=== PATIENT | male | born 1990 | race Caucasian/White ===

== ENCOUNTER → 2019-07-04 15:30 | Outpatient (CLI) | payer BC, SELFPAY ==
--- NOTE | 2019-07-04 15:02 | CT_ITS ---
STUDY: CT ABDOMEN AND PELVIS WITHOUT CONTRAST REASON FOR EXAM: Male, 28 years old. GROSS HEMATURIA, LT FLANK PAIN, NO PREV SURG OR HX [place] RADIATION DOSAGE (If Supplied By Facility): CTDIvol = ( 6.08 ) mGy, DLP = ( 303.83 ) mGycm TECHNIQUE: Transaxial images were obtained from the dome of the diaphragm to the symphysis pubis without oral contrast, and without intravenous contrast. Sagittal and coronal images were reconstructed. Individualized dose optimization techniques were used for this CT. COMPARISON: None. FINDINGS: The visualized lung bases are unremarkable. The visualized portions of the heart are within normal limits. Normal liver. Normal gallbladder and extrahepatic biliary system. Normal spleen. Normal pancreas. Normal bilateral adrenal glands. Nonobstructive punctate calculi in the right kidney. 1 cm cyst in the posterior aspect of the right kidney. 2 mm calculus in the upper pole calyx of the left kidney. Punctate calcification in the mid lower pole of the left kidney. 6 mm calculus in the lower pole calyx of the left kidney. Mild degree of a left hydronephrosis and left hydroureter due to a 5.6 mm calculus at the left ureterovesical junction. There is a 3 mm calculus just proximal to the left UV junction. Normal visualized stomach. Normal small intestine. There are scattered colonic diverticula consistent with diverticulosis. The appendix is visualized and appears normal. Normal abdominal aorta. Normal inferior vena cava. Normal retroperitoneum. Normal urinary bladder. Normal abdominal wall. Normal osseous structures. CT/Abdomen/Pelvis without Cont IMPRESSION: Bilateral nonobstructive intrarenal calculi. Mild degree of left hydronephrosis and hydroureter due to a 5.6 mm calculus at the left ureterovesical junction. 3 mm calculus is also seen just proximal to the left UV junction. Electronically Signed: Stepan Ruiz, at 15:26 EDT , Service support ,
== END ==
PROVIDERS: PCP Family Medicine
DX: R31.0 Gross hematuria (principal); R10.9 Unspecified abdominal pain
CPT/HCPCS: 74176

== ENCOUNTER 2019-07-06 08:37 | Day surgery (SDC) | payer BC, SELFPAY ==
[2019-07-06 09:30] VITALS: BP 124/71; PULSE 79; RESP 15; TEMP 36.8; O2SAT 100; BMI 19.3
[2019-07-06] MEDS: Lactated Ringers 1,000 ML 100 ML IV ×2 (09:52→11:50)
[2019-07-06] MEDS: Cefazolin 2 GM in 0.9% Normal Saline 100 ML IV (10:33)
--- NOTE | 2019-07-06 10:33 | HP.PCM_ITS ---
Problem List (1) Left ureteral calculus Status: Acute History of Present Illness Date of Admission: 07/06/19 Chief Complaint: Left obstructing ureteral calculus The patient is a 28 year old male who is been having obstructive urinary symptoms and frequency urgency blood in the urine for over a month saw us in the office for evaluation CAT scan was done demonstrated a stone in the distal left ureter causing his symptoms and problems he is failed to pass the stone spontaneously so today we can proceed with left ureteroscopy laser lithotripsy and stent placement Past Medical History Allergies No Known Allergies Allergy (Verified 07/06/19 09:29) Home Medications: Ambulatory Orders Medication Instructions Recorded NK 07/05/19 Surgical History: no surgical history Smoking Status: Never smoker Review of Systems Constitutional: Denies: Chills, Fever, Weight Change HEENT: Denies: Head Aches, Sinus Congestion, Sinus Drainage Cardiovascular: Denies: Chest Pain, Palpitations Respiratory: Denies: Cough, Shortness of breath at rest, Sputum production Gastrointestinal: Denies: Abdominal Pain, Nausea, Vomiting Genitourinary: Denies: Dysuria Musculoskeletal: Denies: Joint Pain, Joint Tenderness Skin: Denies: Rash, Wounds Neurological: Denies: Numbness, Tingling, Focal weakness Psychiatric: Denies: Anxiety, Depression, Homicidal Ideations, Suicidal Ideations Hematologic/ Lymphatic: Denies: Easy Bruising, Easy Bleeding VTE Information - Inpt Only VTE Present on Admission: No VTE Mechan Device Prophylaxis: SCD's Patient Problems: Active and Suspected Problems Left ureteral calculus (Acute) - Physical Exam Vitals/I&O's: Vital Signs Temp Pulse Resp BP Pulse Ox 98.3 F 79 15 124/71 H 100 07/06/19 09:30 07/06/19 09:30 07/06/19 09:30 07/06/19 09:30 07/06/19 09:30 Oxygen Delivery Method Room Air Weight: 64.5 kg Body Mass Index (BMI) 19.3 General: Alert, Oriented x3, Cooperative HEENT: Atraumatic, PERRLA, EOMI, Normocephalic Neck: Supple, No JVD, Negative Carotid Bruits Lungs: Clear to auscultation, Normal air movement Cardiovascular: Regular rate, No murmurs Abdomen: Bowel Sounds Present, Soft, Non Tender Extremities: No edema, Capillary Refill Less than 3 Seconds Skin: No rashes, No breakdown Musculoskeletal: No Tenderness to Palpation of Joints or Extremities Neurological: Cranial nerves II-XII grossly intact Psych/Mental Status: Normal Affect, Appropriate Microbiology Past 72 Hours 07/05/19 12:02 Mucosa - Nasopharyngeal Coronavirus COVID-19 PCR - Final Current Medications Lactated Ringer's () 1,000 mls @ 100 mls/hr IV .Q10H BONITA Last Admin: 07/06/19 09:52 Dose: 100 mls/hr Documented by: Assessment/Plan All Active Problems Left ureteral calculus (Acute) 28-year-old male with obstructing stone in the distal left ureter plan to proceed with left ureteroscopy with balloon dilation and stent placement the left side. Essential Procedure Criteria Procedure Essential: Yes Criteria Note: On 05/10/2019 the [facility] ([facility]) Public Order signed by [facility] Director Yen Garcia M.D., regarding the Management of Non- Essential Surgeries and Procedures for the purpose of preserving Personal Protective Equipment (PPE) and critical hospital capacity and resources within [place] went into effect as of 05/11/2019 at 5:00PM. According to the [facility] Public Order: This action will remain in full force and effect until the State of Emergency declared by the Governor no longer exists or the Director of the [facility] rescinds or modifies this Order.. This [facility] order stated all non-essential or elective surgeries and procedures that utilize PPE should be delayed unless there is undue risk to the current or future health of a patient. After reviewing the aforementioned [facility] Public Order and the patients clinical case, I have determined that the scheduled procedure meets the criteria to go forward. Risk to Patient if Procedure Delayed: Risk of rapidly worsening to severe symptoms if delayed
--- NOTE | 2019-07-06 10:37 | PCM.DC.URO ---
Discharge Diet: No Restrictions Discharge Activity: Return to Normal Activity, May Not Drive - for 2 days. Additional Activity Instructions:: Please be aware that pain medications may cause nausea. You should typically eat light foods as you take your pain medication. Pain medication may cause constipation, if this is a problem for you, please discuss with your doctor. Suture Line Care: Avoid Pulling/Pushing, Avoid Pinching/Bending Allergies/Adverse Reactions: Allergies No Known Allergies Allergy (Verified 07/06/19 09:29) Medications to take at Discharge Ciprofloxacin [Cipro] 500 mg PO BID #6 tab 07/06/19 Hydrocodone Bitart/Apap 5-325 [[place] 5MG-325MG] 1 tablet PO Q4H PRN PRN 5 Days #14 tablet 07/06/19 Phenazopyridine [Pyridium] 100 mg PO TID PRN PRN 5 Days #14 tab 07/06/19 The following prescriptions were given: Ciprofloxacin [Cipro] 500 mg PO BID #6 tab Transmission Status: Pending to [facility] Hydrocodone Bitart/Apap 5-325 [[place] 5MG-325MG] 1 tablet PO Q4H PRN PRN 5 Days #14 tablet PRN Reason: Pain Transmission Status: Sent to [facility] Phenazopyridine [Pyridium] 100 mg PO TID PRN PRN 5 Days #14 tab PRN Reason: burning with urination. Transmission Status: Pending to [facility] Primary Care Physician: Dillan Staples MD [Primary Care Provider] - Test Results: Test results from this visit will be discussed in further detail at your follow-up appointment, if applicable. Please Follow Up With: Garrett Caruso MD When: please call to make an appointment.
--- NOTE | 2019-07-06 10:45 | CALC_PTH ---
PATIENT: LISETTE DAVALOS LOC: [facility] U#:[id number] AGE/SX: 28/M ROOM: RE07/06/[address]: Dr. Garrett Caruso MD : 1990 BED: DIS: 07/06/2019 SPEC #: [id number] RECD: 07/06/19 12:10 STATUS: CLEMENTE RERupa #: [id number] HAILEE: 07/06/19 10:[address]: Garrett Caruso DEPT: SURGICAL PATHOLOGY RECD BY: Glenny Yen ENTERED: 07/07/19 08:41 SP TYPE: Calculi OTHR DR: Dr. Dillan Staples MD Tissues: CALCULI Procedures: Surgery Specimen Level I HEADER OPERATION: Ureteroscopy, dilation, basket, laser PRE-OP DIAGNOSIS: Distal left ureteral calculi TISSUE SUBMITTED: Left ureteral calculi GROSS DIAGNOSIS Fragments of stone, clinically ureteral calculi, saved for stone analysis if requested. SJ:bo 07/07/19 COMMENT If chemical analysis is requested on this specimen, please notify the laboratory. GROSS DESCRIPTION Received in fixative is one container labeled with the patient's name and designated left ureteral calculi. The specimen consists of five fragments of reyna-brown stones measuring 0.1 to 0.2 cm in greatest dimension and measuring in aggregate 0.4 x 0.4 x 0.3 cm. The entire specimen is saved for stone analysis, if requested. / PROSPER:bo 07/07/19 CPT: 88273
--- NOTE | 2019-07-06 11:12 | PCM.OPRPT ---
Problem List (1) Left ureteral calculus Status: Acute Report of Operation Date of Procedure: 07/06/19 Pre-Operative Diagnosis: Left ureteral calculi obstructing Post-Operative Diagnosis: Same Surgery/Procedure Performed:: Cystoscopy, left retrograde pyelogram, interpretation fluoroscopic images, balloon dilation of the left ureter, left ureteroscopy laser lithotripsy of stone. Basket of fragments, left stent placement Description of Surgical Findings:: 28-year-old male is been having symptoms from irritative urinary symptoms frequency urgency pain or discomfort pain on the side blood in the urine CAT scan was done to demonstrate a stone in the distal ureter very large and today we can proceed with ureteroscopy and laser the stone and stent placement. Patient was taken back to the operating room after smooth induction of general anesthesia he was placed in dorsolithotomy position the penis and testicles were prepped and draped in usual sterile fashion went into the urethra with a 21 [place] rigid cystourethroscope was able to get to the urethra quite easily the entire length urethra is normal the sphincter was normal prostate was normal inside the bladder he had a fairly edematous swollen left ureteral orifice was able to cannulate the left ureteral orifice advanced a wire past the stone and then advanced a balloon dilator up to the stone and balloon dilated the distal left ureter then I left the wire in place and next to the wire went in with a SlimLine rigid ureteroscope was able to get into the bladder easily and then identify the ureteral orifice and the next to the wire went into the ureter we then found a large stone about 7 mm in the distal ureter used a 200 ?m laser fiber laser the stone little tiny pieces. We then used a nitinol tipless basket and basket the major fragments out of the distal ureter some tiny fragments were still left in the ureter. I then performed a retrograde pyelogram he could see contrast going of the kidney advance a wire through the ureteroscope up to the left kidney backed out the ureteroscope and then over the wire advanced a stent a 6 [place] by 24 cm stent once a stent was in good position and coiled in the kidney bladder good position we left the string on the stent for easy extraction but cut it short to prevent X prevent accidental early extraction. The bladder was drained the patient anesthetic was reversed taken back to PACU in good condition see him next week for cystoscopy and stent removal. Type of Anesthesia:: General Drains: stent left. - Admit VTE Documentation VTE Present on Admission: No VTE Mechan Device Prophylaxis: SCD's
[2019-07-06 11:33] VITALS: BP 102/68; BP 124/71; PULSE 77; RESP 12; TEMP 36.5; O2SAT 98
[2019-07-06] MEDS: Ketorolac 30 MG/ML Syringe IV (11:41)
[2019-07-06 11:56] VITALS: BP 115/79; BP 124/71; PULSE 77; RESP 16; TEMP 36.3; O2SAT 100
[2019-07-06 12:40] VITALS: BP 121/65; BP 124/71; PULSE 66; RESP 16; TEMP 36.2; O2SAT 99
== END 2019-07-06 12:48 | disposition home or self-care (01) ==
LOC: SDC 08:41 → AC 08:41
PROVIDERS: PCP Family Medicine; Referring Provider Urology; Visit Provider Urology
PROC: 0TJ98ZZ Inspection of Ureter, Via Natural or Artificial Opening Endoscopic (ICD-10-PCS; CPT 52352; principal; 2019-07-06 10:35)
DX: N20.1 Calculus of ureter (principal); Z11.59 Encounter for screening for other viral diseases
CPT/HCPCS: 00918; 52356; 76000; 87635; 88300; G2023; J7120; C1769; C2617; J2405; U0002

== ENCOUNTER 2019-11-14 13:03 | Emergency (ER) | payer OTHER, SELFPAY ==
[2019-11-14 13:03] VITALS: BP 131/90; PULSE 91; RESP 16; TEMP 36.1; O2SAT 97; BMI 18.3
--- NOTE | 2019-11-14 13:29 | ED.VIS.GEN ---
History of Present Illness Chief Complaint: Back Informant: Patient Onset: Yesterday Current Severity: Mild Maximum Severity: Moderate Narrative: Patient present secondary to back pain. Yesterday morning he was at work and helping to lift some products. He states he felt a twinge in his low back shortly after lifting that progressed throughout the day. He ended up leaving work early. He did take a dose of hydrocodone and tizanidine last evening at home. He states he took more hydrocodone this morning. He has not had relief in his pain so he called off work today and came to the emergency room. There was no direct injury to his back. Pain does not radiate down his legs. He has had no problems with bowel or bladder control. He denies problems with his back previously. - Past Medical History (1) Left ureteral calculus Status: Resolved Past Medical History - Allergies and Home Meds Allergies/Adverse Reactions: Allergies No Known Allergies Allergy (Verified 07/06/19 09:29) Primary Care Physician: Dillan Staples MD [Primary Care Provider] - Surgical History: no surgical history Lives: Spouse/ Significant Other Smoking Status: Never smoker Review of Systems General: Denies: Chills, Fever Eyes: Denies: Visual changes - bilaterally ENT: Denies: Bilateral ear pain Cardiovascular: Denies: Chest pain Respiratory: Denies: Dyspnea, Cough Gastrointestinal: Denies: Abdominal pain, Nausea, Vomiting, Diarrhea Musculoskeletal: Reports: Back pain Skin: Denies: Rash Neurological: Denies: Headache, Weakness, Parasthesia Hematologic: Denies: Easy bruising, Easy bleeding Allergy: Denies: Uticaria Physical Exam Vital Signs/Narrative: Vital Signs Temp Pulse Resp BP Pulse Ox 11/14/19 13:03 97 F L 91 16 131/90 H 97 Inital Vital Signs reviewed: Yes General: Well nourished, Well developed Head: Normocephalic ENT: Moist mucous membranes Neck: Supple Cardiovascular: Regular rate, Regular rhythm Respiratory: No distress, CTA bilaterally Abdomen: Soft, Nontender Back: - - Mild tenderness in the low lumbar paraspinals. No overlying skin changes. Skin: Normal color Neurological: Alert, Oriented x3, Normal Strength, Normal Sensation Psychological: Normal affect Diagnostic/Tx/Re-eval Impressions Lumbar Spine X-Ray 11/14/19 13:40 IMPRESSION: Straightening of the normal lumbar lordosis. Electronically Signed: Stepan Ruiz, at 14:05 EDT , Service support , 11/14/19 13:40 Lumbar Spine 2 or 3 Views [RAD] Stat - Medical Decision Making Patient had taken hydrocodone prior to coming to the emergency room. He will be given prescription for naproxen and Flexeril here. He was given a Lidoderm patch while in the emergency room. He is referred to [facility] for follow-up. ED Disposition - Plan for ED Patient: Disposition: Home or Assisted Living Diagnosis: Lumbar strain, Muscle spasm of back Instructions: ED LUMBAR SPRAIN/STRAIN, ED SPASM Muscle Prescriptions: cycloBENZAPRine HCl [Flexeril] 10 mg PO TID PRN #20 tab PRN Reason: Muscle Spasm Transmission Status: Pending to [facility] [address] Naproxen [Naprosyn] 500 mg PO BID PRN PRN #20 tab PRN Reason: Pain Score 4-10/10 Transmission Status: Pending to [facility] Referrals: [facility] OF PHYSICIANS] - 3-5 Days
--- NOTE | 2019-11-14 13:40 | RAD_ITS ---
STUDY: X-RAY - LUMBAR SPINE REASON FOR EXAM: Male, 29 years old. Low back pain after lifting at work TECHNIQUE: 3 view(s) of the lumbar spine were obtained. COMPARISON: None FINDINGS: There is straightening of the normal lumbar lordosis. There is no substantial scoliosis. There is a normal alignment of the vertebrae. Normal vertebral bodies and endplates. Normal disc space heights. The soft tissue structures are unremarkable. RAD/Lumbar Spine 2 or 3 Views IMPRESSION: Straightening of the normal lumbar lordosis. Electronically Signed: Stepan Ruiz, at 14:05 EDT , Service support ,
[2019-11-14] MEDS: Lidocaine 5% Patch 1 PATCH TOPICAL (14:53)
== END 2019-11-14 14:55 | disposition home or self-care (01) ==
PROVIDERS: Emergency Provider Emergency Medicine; PCP Family Medicine
DX: S39.012A Strain of muscle, fascia and tendon of lower back, initial encounter (principal); M62.830 Muscle spasm of back; X58.XXXA Exposure to other specified factors, initial encounter; Z87.442 Personal history of urinary calculi
CPT/HCPCS: 72100; 99283